=== PATIENT | female | born 1960 | race Caucasian/White ===

== ENCOUNTER 2016-09-28 21:18 | Emergency (ER) | payer OTHER ==
[~2016-09-28 21:18] MED LIST: AMBI12.5 PO; CLON.1 PO; GALA12TA6 PO; GLUCTAB PO; HYDR50TA94 PO; IBUP800T23 PO; METO10TA PO; METO50CR PO; MORP1INJ45 PO; OXYC-103 PO; VENTAER INH; WAL-10TA2 PO; XANA1TAB6 PO
--- NOTE | 2016-09-28 21:55 | PD ---
HPI Chief Complaint: Alcohol/Drug Intoxication Time Seen by Provider: 21:25 Travel History International Travel<30 days: No Contact w/Intl Traveler<30days: No Traveled to known affect area: No History of Present Illness HPI 56-year-old female presents to the emergency room via ambulance under a [place]'s act for alcohol intoxication. According to Galicia's act, the patient was found intoxicated lying on the shoulder of the roadway. She was in a verbal argument with her family earlier and walked to a bar where she consumed alcohol. She then spoke with her daughter on the phone and stated that she was lost in the [place] at which time the police department was dispatched and found her intoxicated. Patient admits to drinking "a little bit" of alcohol and taking Xanax earlier today. Denies any other illicit drug use. She denies any pain. PFSH Past Medical History Arthritis: No Asthma: No Autoimmune Disease: No Blood Disorders: No Anxiety: Yes Depression: Yes Heart Rhythm Problems: No Cancer: No Cardiac Catheterization: No Cardiovascular Problems: No High Cholesterol: No Chemotherapy: No Chest Pain: Yes ([facility] NOVEM[facility] OF 2007) Congestive Heart Failure: No COPD: No Cerebrovascular Accident: No Diabetes: Yes (DIET CONTROLLED) Patient Takes Glucophage: No Diminished Hearing: No GERD: No Glaucoma: No Headaches: No Hepatitis: No Hiatal Hernia: No Hypertension: Yes Kidney Stones: No Musculoskeletal: No Neurologic: No Psychiatric: Yes (MULTIPLE DIAGNOSIS) Reproductive: No Respiratory: No Myocardial Infarction: No Radiation Therapy: No Renal Failure: No Seizures: No Sickle Cell Disease: No Sleep Apnea: No Thyroid Disease: No Ulcer: No Past Surgical History Abdominal Surgery: Yes AICD: No Cardiac Surgery: No Cholecystectomy: Yes Coronary Artery Bypass Graft: No Ear Surgery: No Endocrine Surgery: No Eye Surgery: No Genitourinary Surgery: No Gynecologic Surgery: No Hysterectomy: Yes (PARTIAL BY DR. AUSTIN) Oral Surgery: No Pacemaker: No Thoracic Surgery: No Other Surgery: Yes (METACARPAL SURGERY ON RT HAND/WRIST IN 1996) Social History Alcohol Use: Yes (very intoxicated currently) Tobacco Use: No (unobtainable) Substance Use: No Allergies-Medications (Allergen,Severity, Reaction): Coded Allergies: Toradol (Verified Allergy, Severe, Nausea/Vomiting/Itching, 09/28/16) Morphine (Verified Adverse Reaction, Severe, "I START HEARING THINGS", 09/28) pt states that this is not an allergy, currently takes morphine as part of her medications Reported Meds & Prescriptions Reported Meds & Active Scripts Active Active Prescriptions or Reported Medications Unobtainable Review of Systems Except as stated in HPI: all other systems reviewed are Neg Physical Exam Narrative GENERAL: Well-nourished, well-developed female in no acute distress. Afebrile. Moving all extremities. Screaming. SKIN: Warm and dry. HEAD: Normocephalic. EYES: No scleral icterus. No injection or drainage. NECK: Supple, trachea midline. No JVD or lymphadenopathy. CARDIOVASCULAR: Regular rate and rhythm without murmurs, gallops, or rubs. RESPIRATORY: Breath sounds equal bilaterally. No accessory muscle use. PSYCHIATRIC: No delusional thought processes. No hallucinations. Obviously intoxicated. Data Data Last Documented VS Vital Signs Date Time Temp Pulse Resp B/P Pulse Ox O2 Delivery O2 Flow Rate FiO2 09/29/16 05:02 98.9 09/29/16 00:27 18 09/29/16 00:10 95 Room Air 09/28/16 22:50 69 109/60 Orders Basic Metabolic Panel (Bmp) (09/28/16 22:01) Alcohol (Ethanol) (09/28/16 22:01) Ct Brain W/O Iv Contrast(Rout) (09/28/16 ) Ct Facial Bones W/O Iv Cont (09/28/16 ) Haloperidol Inj (Haldol Inj) (09/28/16 22:45) Acetaminophen (Tylenol) (09/28/16 23:00) Haloperidol Inj (Haldol Inj) (09/28/16 23:45) Labs Laboratory Tests Test 09/28/16 22:30 Sodium Level 140 MEQ/L Potassium Level 3.3 MEQ/L Chloride Level 104 MEQ/L Carbon Dioxide Level 28.5 MEQ/L Anion Gap 8 MEQ/L Blood Urea Nitrogen 14 MG/DL Creatinine 0.82 MG/DL Estimat Glomerular Filtration 72 ML/MIN Rate Random Glucose 109 MG/DL Calcium Level 8.1 MG/DL Ethyl Alcohol Level 401 MG/DL MDM Medical Decision Making Medical Screen Exam Complete: Yes Emergency Medical Condition: Yes Medical Record Reviewed: Yes Differential Diagnosis Alcohol intoxication versus substance abuse disorder versus suicidal ideation Narrative Course 56-year-old female presents to the emergency room via ambulance under [place] act for evaluation of alcohol intoxication. According to Galicia's Act, patient left the bar earlier today and then called her daughter stating that she was lost in the [place]. When the police found her, she was lying on the shoulder of the road and clearly intoxicated. Patient smells of alcohol. She is screaming wildly and flailing all extremities. She denies any pain at this time but reported pain to the police officers. Vital signs stable. Patient admits to drinking "a small amount" of alcohol and states she took a Xanax earlier today. Given poor history and agitated state, CT of the brain is ordered and pending. BMP and alcohol level are ordered and pending. Patient was found on the floor during her stay and began complaining of facial pain. No obvious deformities. Patient does have a slight anterior nosebleed in the left nostril. She was given ice and Tylenol for pain. CT of the face is ordered and pending. Patient signed out to oncoming provider. Scripts Unable to Obtain Active Prescriptions or Reported Meds Condition: Stable La Nena Tomas Sep 28, 2016 21:55
[2016-09-28] MEDS ORDERED: HALOPERIDOL LACTATE 5 MG/ML AMP IM ONE ×2 (22:45→23:45)
[2016-09-28 22:50] VITALS: BP 109/60; PULSE 69; RESP 18; TEMP 98.2; O2SAT 95
[2016-09-28] MEDS ORDERED: ACETAMINOPHEN 500 MG CPLT PO ONE (23:00)
[2016-09-28 23:13] LABS: BICARBONATE 28.5 MEQ/L (21.0-32.0); POTASSIUM 3.3 MEQ/L (3.5-5.1)
--- NOTE | 2016-09-28 23:30 | RADRPT ---
EXAM DATE/TIME: 09/28/2016 23:16 [facility] COMPARISON: No previous studies available for comparison. INDICATIONS : Altered mental status. ETOH. RADIATION DOSE: 33.71 CTDIvol (mGy) MEDICAL HISTORY : None SURGICAL HISTORY : Cholecystectomy. Hysterectomy. ENCOUNTER: Initial ACUITY: 1 day PAIN SCALE: 0/10 LOCATION: cranial TECHNIQUE: Multiple contiguous axial images were obtained of the head. Using automated exposure control and adj ustment of the mA and/or kV according to patient size, radiation dose was kept as low as reasonably a chievable to obtain optimal diagnostic quality images. FINDINGS: CEREBRUM: The ventricles are normal for age. No evidence of midline shift, mass lesion, hemorrhage or acute in farction. No extra-axial fluid collections are seen. POSTERIOR FOSSA: The cerebellum and brainstem demonstrate no abnormality. The 4th ventricle is midline. The cerebell opontine angle is unremarkable. EXTRACRANIAL: There is mild mucoperiosteal thickening the left maxillary sinus. SKULL: The calvaria is intact. No evidence of skull fracture. CONCLUSION: No acute intracranial abnormalities identified. Ash Kim MD on September 28, 2016 at 23:26 Board Certified Radiologist. This report was verified electronically.
--- NOTE | 2016-09-28 23:33 | RADRPT ---
EXAM DATE/TIME: 09/28/2016 23:16 [facility] COMPARISON: No previous studies available for comparison. INDICATIONS : Trauma; fall. Bruising on chin. RADIATION DOSE: 48.36 CTDIvol (mGy) MEDICAL HISTORY : None SURGICAL HISTORY : Cholecystectomy. Hysterectomy. ENCOUNTER: Initial ACUITY: 1 day PAIN SCORE: 0/10 LOCATION: facial TECHNIQUE: Volumetric scanning of the facial bones was performed. Using automated exposure control and adjustme nt of the mA and/or kV according to patient size, radiation dose was kept as low as reasonably achiev able to obtain optimal diagnostic quality images. FINDINGS: ORBITS: The orbital structures are intact. The retroconal structures have a normal configuration. No radiop aque foreign bodies are seen. The lenses are normally located. NASAL BONE: The nasal bones and maxillary spine are intact. ZYGOMATIC ARCHES: Symmetric without evidence of fracture. SINUSES: There is mild left maxillary mucoperiosteal thickening. No air-fluid levels seen. The frontal sinuse s are nonaerated. NASAL CAVITY: The nasal septum is intact and midline. The lacrimal ducts are intact. SOFT TISSUES: No radiopaque foreign bodies seen. No soft-tissue swelling is seen. INTRACRANIAL: No acute intracranial abnormality is seen. OTHER: The mandible and pterygoid plates are intact. CONCLUSION: 1. No acute abnormality is identified. No maxillofacial fracture is seen. 2. Mild mucoperiosteal thickening is present within the left maxillary antrum. Ash Kim MD on September 28, 2016 at 23:28 Board Certified Radiologist. This report was verified electronically.
[2016-09-29 00:27] VITALS: RESP 18
--- NOTE | 2016-09-29 02:26 | PD ---
Physical Exam Date Seen by Provider: Sep 29, 2016 Time Seen by Provider: 02:21 Narrative GENERAL: This is a obese, well-developed patient, in no apparent distress. Patient is agitated and restless. She is uncooperative. SKIN: No rashes, ecchymoses or lesions. Warm and dry. HEAD: Atraumatic. Normocephalic. EYES: PERRL, EOMI, no discharge or injection. No scleral icterus. EARS: Clear NOSE: No nasal bridge tenderness. There is some dry blood in the nares THROAT: Mucosa pink and moist. Airway patent. NECK: Trachea midline. supple, moves head freely. LUNGS: Clear to auscultation. CV: Regular in rhythm. ABDOMEN: Soft nontender. Obese EXT: No clubbing cyanosis or edema. Data Data Last Documented VS Vital Signs Date Time Temp Pulse Resp B/P Pulse Ox O2 Delivery O2 Flow Rate FiO2 09/29/16 00:27 18 09/29/16 00:10 95 Room Air 09/28/16 22:50 69 109/60 Orders Basic Metabolic Panel (Bmp) (09/28/16 22:01) Alcohol (Ethanol) (09/28/16 22:01) Ct Brain W/O Iv Contrast(Rout) (09/28/16 ) Ct Facial Bones W/O Iv Cont (09/28/16 ) Haloperidol Inj (Haldol Inj) (09/28/16 22:45) Acetaminophen (Tylenol) (09/28/16 23:00) Haloperidol Inj (Haldol Inj) (09/28/16 23:45) Labs Laboratory Tests Test 09/28/16 22:30 Sodium Level 140 MEQ/L Potassium Level 3.3 MEQ/L Chloride Level 104 MEQ/L Carbon Dioxide Level 28.5 MEQ/L Anion Gap 8 MEQ/L Blood Urea Nitrogen 14 MG/DL Creatinine 0.82 MG/DL Estimat Glomerular Filtration 72 ML/MIN Rate Random Glucose 109 MG/DL Calcium Level 8.1 MG/DL Ethyl Alcohol Level 401 MG/DL [facility] Medical Record Reviewed: Yes Supervised Visit with BECKY: No Interpretation(s) EtOH: 401 Laboratory Tests Test 09/28/16 22:30 Sodium Level 140 MEQ/L Potassium Level 3.3 MEQ/L Chloride Level 104 MEQ/L Carbon Dioxide Level 28.5 MEQ/L Anion Gap 8 MEQ/L Blood Urea Nitrogen 14 MG/DL Creatinine 0.82 MG/DL Estimat Glomerular Filtration 72 ML/MIN Rate Random Glucose 109 MG/DL Calcium Level 8.1 MG/DL Ethyl Alcohol Level 401 MG/DL Differential Diagnosis MDM: High Differential diagnoses: Schizophrenia, schizoaffective disorder, bipolar, anxiety, depression, adjustment reaction, mood disorder NOS, ODD, depressive disorder NOS, dementia, dementia with agitation, psychosis NOS, substance induced mood disorder, intermittent explosive disorder, Asperger syndrome, infection,electrolyte abnormality, malingering. Narrative Course Mental health screening discussed with the patient. Psychiatric screen ordered. The patient is given additional 3 mg of Haldol IM. The patient is being treated for her agitation and concern for recent falling. The patient is been medically cleared. There is no evidence of any significant injury from her fall today. CT of the brain and facial bones are unremarkable. Patient has been medicated for her agitated state. Patient is heavily intoxicated. The patient is here under [place] act. When the patient's blood alcohol is less than 200 she'll be consider medically cleared. She can be discharged when she exhibits severity with a steady gait. The patient at 0455 is awake and is requesting discharge. She will be told to contact a sober individual come pick her up. The patient is medically cleared. She does have a area of ecchymosis to her mentum. Diagnosis Primary Impression: Alcohol-induced mood disorder Additional Impression: Alcohol intoxication Patient Instructions: General Instructions Additional Instruction: Rest. Increase fluids. Avoid alcohol. Avoid illegal substances. Follow-up with [facility] for detox. Do not operate a car or any heavy machinery under the influence of alcohol or drugs. Follow-up with a medical doctor this week. Return to the ER for emergencies Med/Other Pt SpecificInfo: No Meds Exist/No RX given Scripts Unable to Obtain Active Prescriptions or Reported Meds Disposition: 01 DISCHARGE HOME Condition: Stable Deondre Hathaway Sep 29, 2016 02:26
[2016-09-29 05:02] VITALS: TEMP 98.9
== END 2016-09-29 05:27 | disposition home or self-care (01) ==
LOC: NEPA 21:18
DX: F10.14 Alcohol abuse with alcohol-induced mood disorder (principal); F10.129 Alcohol abuse with intoxication, unspecified; Y90.8 Blood alcohol level of 240 mg/100 ml or more
CPT/HCPCS: 70450; 70486; 80048; 80320; 96372; 99284; J1630